=== PATIENT | female | born 1960 | race Caucasian/White ===

== ENCOUNTER 2016-07-04 17:11 | Emergency (ER) | payer OTHER ==
[2016-07-04 17:19] VITALS: BP 102/72; PULSE 65; RESP 14; O2SAT 99
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
[2016-07-04] MEDS: HYDROmorphone 0.5 mg/0.5 mL iSecure Syringe IVPUSH PRN ×3 (19:16→19:59)
[2016-07-04] MEDS ORDERED: _oxyCODONE/APAP 5-325 mg Tablet PO PRN (20:40)
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
[2016-07-04 21:23] VITALS: BP 101/70; PULSE 74; RESP 16; O2SAT 95
[2016-07-04] MEDS ORDERED: oxyCODONE-Acetamin 5-325 mg Tablet PO ONE (21:40)
== END 2016-07-04 21:59 | disposition home or self-care (01) ==
LOC: SED 17:11
DX: S52.122A Displaced fracture of head of left radius, initial encounter for closed fracture (principal); S52.092A Other fracture of upper end of left ulna, initial encounter for closed fracture; S53.095A Other dislocation of left radial head, initial encounter; V28.9XXA Unspecified motorcycle rider injured in noncollision transport accident in traffic accident, initial encounter; Y93.55 Activity, bike riding; Y92.410 Unspecified street and highway as the place of occurrence of the external cause; Y99.8 Other external cause status; J45.909 Unspecified asthma, uncomplicated; Z88.5 Allergy status to narcotic agent
CPT/HCPCS: 29105; 70450; 72125; 73070; 73110; 96374; 96375; 96376; 99285; J1170; J2270

== ENCOUNTER 2016-07-06 11:53 | Day surgery (SDC) | payer OTHER ==
[2016-07-06] VITALS (8 sets, daily range): BP systolic 98–123; BP diastolic 64–80; PULSE 67–78; RESP 11–17; O2SAT 96–99
[~2016-07-06] VITALS: Ht 167.6 cm; Wt 57.8 kg
[2016-07-06] MEDS ORDERED: fentaNYL-PF 50 mCg/mL 2 mL Inj ONE (11:54)
[2016-07-06] MEDS ORDERED: Dexamethasone 4 mg/mL Inj ONE (11:54)
[2016-07-06] MEDS ORDERED: Ondansetron 2 mg/mL 2 mL Inj ONE (11:54)
[2016-07-06] MEDS ORDERED: EPHEDrine/NS 5 mg/mL 5 mL Syringe ONE (11:54)
[2016-07-06] MEDS ORDERED: Propofol 10,000 mCg/mL 20 mL Inj ONE (11:54)
[2016-07-06] MEDS ORDERED: Lactated Ringer's 1,000 ML IV ONE ×2 (12:07→17:49)
[2016-07-06] MEDS ORDERED: OXYC-407 PO (12:20)
[2016-07-06] MEDS ORDERED: ONDA-53 PO (12:20)
[2016-07-06] MEDS ORDERED: ALBU18HF INH (12:23)
[2016-07-06] MEDS ORDERED: METH750T3 PO (12:24)
[2016-07-06] MEDS ORDERED: LISI10TA PO (12:24)
[2016-07-06] MEDS ORDERED: MELO-253 PO (12:25)
[2016-07-06] MEDS ORDERED: CeFAZolin Inj 2 gm / 50mL D5W IV ONE (12:34)
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
[2016-07-06] MEDS ORDERED: Lactated Ringer's 500 ML IV PRN (13:51)
[2016-07-06] MEDS ORDERED: Lactated Ringer's 1,000 ML IV SCH (13:51)
[2016-07-06] MEDS ORDERED: Phenylephrine 10,000 mCg/mL Inj IVPUSH PRN (13:55)
[2016-07-06] MEDS ORDERED: fentaNYL-PF 50 mCg/mL 2 mL Inj IVPUSH PRN (13:55)
[2016-07-06] MEDS ORDERED: HYDROmorphone 1 mg/mL Inj IVPUSH PRN (13:55)
[2016-07-06] MEDS ORDERED: EPHEDrine Sulfate 50 mg/mL Inj IVPUSH PRN (13:55)
[2016-07-06] MEDS ORDERED: Ondansetron 2 mg/mL 2 mL Inj IVPUSH PRN (13:55)
[2016-07-06] MEDS ORDERED: Dexamethasone 4 mg/mL Inj IVPUSH PRN (13:55)
[2016-07-06] MEDS ORDERED: Bupivacaine Liposome 1.3% 20 mL Inj ONE (15:32)
[2016-07-06] MEDS ORDERED: Bupivacaine Liposome 1.3% 20 mL Inj INFILTRATE ONE (15:32)
[2016-07-06] MEDS ORDERED: Bupivacaine 0.5%/EPI 50 mL Inj INFILTRATE ONE (15:32)
[2016-07-06] MEDS ORDERED: CeFAZolin 2 Gm/50 mL D5W IV Premix IV ONE (15:50)
--- NOTE | 2016-07-06 17:09 | PCM.ANEP1 ---
Post Anesthesia Phase 1 PACU Phase 1 Assessment Date of Service: July 06, 2016 ([id number]) Vital Signs 36.5, 82, 20, 96% RA, 98/71 Vital Signs Date Time Temp Pulse Resp B/P Pulse Ox O2 Delivery O2 Flow Rate FiO2 07/06/16 12:16 36.4 71 16 100/68 96 Room Air Anesthetic Administered: GA Level of Alertness: Awake, talking JIMENEZ's with Equal Strength: Yes Pain: No Nausea or Vomiting: No Oxygen Delivery: Room Air Lungs: Clear to Auscultation Dermatome Level: Full Sensation Summary UNEVENTFUL GA Complications: No Follow up Care: No Austin Forman MD July 06, 2016 17:09
[2016-07-06] MEDS ORDERED: hydrOXYzine Pamoate 25 mg Capsule PO PRN (17:15)
[2016-07-06] MEDS ORDERED: Acetaminophen IV 1,000 MG in IV Premix 1 EACH IV PRN (17:15)
[2016-07-06] MEDS: MetoCLOpramide 5 mg/mL 2 mL Inj IVPUSH PRN ×2 (18:05→18:17)
[2016-07-06] MEDS: oxyCODONE-Acetamin 5-325 mg Tablet PO PRN ×2 (18:11→18:16)
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
== END 2016-07-06 23:59 | disposition home or self-care (01) ==
LOC: SAS 11:53
PROVIDERS: ATTEND Orthopaedic Surgery
DX: S52.272A Monteggia's fracture of left ulna, initial encounter for closed fracture (principal); V18.0XXA Pedal cycle driver injured in noncollision transport accident in nontraffic accident, initial encounter; Y93.55 Activity, bike riding; Y92.9 Unspecified place or not applicable; I10 Essential (primary) hypertension; J45.909 Unspecified asthma, uncomplicated; F43.10 Post-traumatic stress disorder, unspecified; F41.8 Other specified anxiety disorders; K58.9 Irritable bowel syndrome, unspecified; M54.5 Low back pain; Z79.51 Long term (current) use of inhaled steroids
CPT/HCPCS: 24635; 76001; J0690; J1100; J1885; J2250; J2405; J2765; J3010; J7120